=== PATIENT | female | born 1945 | race Caucasian/White ===

== ENCOUNTER 2024-04-21 15:55 | Outpatient (REF) | payer OTHER, MEDICAID, SELFPAY ==
[2024-04-21 17:50] LABS: BUN 30 mg/dL (7-18); CREATININE 1.1 mg/dL (0.55-1.02); Calcium 8.8 mg/dL (8.5-10.1); Chloride 105 mmol/L (98-107); Estimated GFR 51.75 (mL/min/1.73m2); Glucose 123 mg/dL (74-106); Sodium 144 mmol/L (136-145)
== END 2024-04-21 15:56 | disposition home or self-care (01) ==
LOC: LBN 15:55
PROVIDERS: PCP Family Medicine; Visit Provider Family Medicine
DX: I63.9 Cerebral infarction, unspecified (principal)
CPT/HCPCS: 80048

== ENCOUNTER 2024-05-19 10:14 | Emergency (ER) | payer MEDICARE, MEDICAID, SELFPAY ==
[2024-05-19] VITALS (34 sets, daily range): BP systolic 117–198; BP diastolic 58–84; PULSE 45–78; RESP 10–25; TEMP 36.4–36.9; O2SAT 94–100
[2024-05-19] MEDS: Propofol 200 MG/20 ML VIAL (10:21)
[2024-05-19] MEDS: Succinylcholine 100 MG/5 ML SYR (10:22)
--- NOTE | 2024-05-19 10:25 | W.ED.GENAD ---
Discharge Plan Disposition Patient Disposition: Transfer-Acute Inpatient Care Specific Acute Inpt Facility: [place] Condition: Critical Discharge Details Clinical Impression: Convulsions, status epilepticus, Non-ST elevation ND (NSTEMI), Respiratory failure requiring intubation, Atrial fibrillation Primary Care Provider: Shayla Yanez ED Provider: [facility] Meds and New Rx's Prescriptions: Continued acetaminophen 325 mg capsule 650 mg PO Q6H PRN atorvastatin 40 mg tablet 40 mg PO DAILY bisacodyl [Gentle Laxative (bisacodyl)] 10 mg suppository 10 mg ME DAILY PRN Eliquis 5 mg tablet 5 mg PO BID furosemide 40 mg tablet 40 mg PO DAILY lisinopril 20 mg tablet 20 mg PO DAILY melatonin 3 mg tablet 3 mg PO QHS psyllium husk [Daily Fiber] 0.4 gram capsule 0.4 g PO DAILY methimazole 15 mg tablet 15 mg PO DAILY metoprolol tartrate 25 mg tablet 12.5 mg PO BID magnesium hydroxide [Milk of Magnesia] 400 mg/5 mL suspension 30 ml PO QHS PRN Rx Instructions: Give if no BM in 3 days polyethylene glycol 3350 [ClearLax] 17 gram/dose powder 17 g PO DAILY Rx Instructions: Give in 4-8 ounces of fluid if no BM in 72 hours nitrofurantoin 100 mg capsule 100 mg PO DAILY Rx Instructions: must administer with a meal/food- for UTI prophylactic albuterol 90 mcg/actuation aerosol 180 mcg inhalation Q4H PRN Rx Instructions: 2 puffs Q4H PRN mupirocin 2 % ointment 1 applic topical BID Rx Instructions: Apply to belly button for skin irritation for 10 days- started 05/16/24 sertraline 100 mg tablet 200 mg PO DAILY Discharge Instructions Instructions: Atrial fibrillation Discharge Data Discharge Physician: Dick Fowler HPI General Date/Time Provider Initiated Documentation: 05/19/24 10:24. HPI Narrative: Patient presents emergency department brought in by the ambulance from custodial where she was last seen well at 9 AM and at approximately 10 AM was seen with left gaze deviation and left hemiparesis. Immediately EMS was called and the patient started having a seizure. She received 5 mg of IV Versed in the ambulance. Patient is unresponsive with apneic respirations nonverbal Related Data Home Medications ?Medication ?Instructions ?Recorded ?Confirmed acetaminophen 325 mg capsule 650 mg PO Q6H PRN 05/19/24 05/19/24 albuterol 90 mcg/actuation aerosol 180 mcg inhalation Q4H PRN 05/19/24 05/19/24 inhaler apixaban 5 mg tablet (Eliquis) 5 mg PO BID 05/19/24 05/19/24 atorvastatin 40 mg tablet 40 mg PO DAILY 05/19/24 05/19/24 bisacodyl 10 mg rectal suppository 10 mg ME DAILY PRN 05/19/24 05/19/24 (Gentle Laxative (bisacodyl)) furosemide 40 mg tablet 40 mg PO DAILY 05/19/24 05/19/24 lisinopril 20 mg tablet 20 mg PO DAILY 05/19/24 05/19/24 magnesium hydroxide 400 mg/5 mL 30 ml PO QHS PRN 05/19/24 05/19/24 oral suspension (Milk of Magnesia) melatonin 3 mg tablet 3 mg PO QHS 05/19/24 05/19/24 methimazole 15 mg tablet 15 mg PO DAILY 05/19/24 05/19/24 metoprolol tartrate 25 mg tablet 12.5 mg PO BID 05/19/24 05/19/24 mupirocin 2 % topical ointment 1 applic topical BID 05/19/24 05/19/24 nitrofurantoin 100 mg capsule 100 mg PO DAILY 05/19/24 05/19/24 polyethylene glycol 3350 17 17 g PO DAILY 05/19/24 05/19/24 gram/dose oral powder (ClearLax) psyllium husk 0.4 gram capsule 0.4 g PO DAILY 05/19/24 05/19/24 (Daily Fiber) sertraline 100 mg tablet 200 mg PO DAILY 05/19/24 05/19/24 Allergies Allergy/AdvReac Type Severity Reaction Status Date / Time adhesive tape Allergy Unknown Unknown Verified 05/19/24 10:29 metformin Allergy Unknown Unknown Verified 05/19/24 10:29 Sulfa (Sulfonamide Allergy Unknown Unknown Verified 05/19/24 10:29 Antibiotics) General Stated Complaint: Seizure ANGELO: 2 Review of Systems Narrative: Unable to obtain review of systems due to the patient's level of consciousness Exam Narrative Exam Narrative: Exam; vitals signs as reported above normal Constitutional;unresponsive non verbal General: no verbal no response HEENT: Head: normal to inspection, no palpable skull fracture and normocephalic atraumatic Eyes: : appearance normal, left gaze deviation Pupils: PERRL : conjunctiva normal Direct ophthalmoscopy: normal light reflex, normal conjunctiva, normal visual acuity Ears: Normal TM, normal external canal Nose: normal no rhinorreha Neck no JVD, supple non tender Neck: normal visual inspection, full ROM and no lymphadenopathy Chest: normal inspection of the chest Respiratory : Poor respiratory effort with normal bilateral breath sounds Cardio Rate: regular rate, rhythm: regular rhythm normal heart sounds S1 and S2 no murmurs, gallops, or rubs GI : normal to inspection, normal bowel sounds, soft, non tender, non distended, no organomegaly Back/Spine/ no CVA tenderness Thoracic/Lumbar Spine: no tenderness or deformities Skin no rashes or lesions Neuro: Patient is unresponsive with left gaze deviation Extremities, no edema, full range of motion, normal strength Course Reevaluation(s) Initial Evaluation: Patient patient intubated but now she is moving her lower extremities in response to painful stimuli. [id number] ultrasound does not show any abnormalities of her heart. Will titrate the propofol and teleneurology was consulted Time: 11:00 Consultations Consultation #1: Teleneurology Time: 15:23 Consultation #2: Spoke with Dr. Cordero attending physician in the ICU at [facility] with Kim who has accepted the patient transfer to the ICU Vital Signs Vital signs: Vital Signs Pulse 78 05/19/24 10:14 Pulse Oximetry 99 05/19/24 10:14 Pulse 78 05/19/24 10:14 Blood Pressure 179/79 H 05/19/24 10:20 Pulse Oximetry 99 05/19/24 10:14 Oxygen Delivery Method Ambu-Bag 05/19/24 10:14 Procedure Airway Management Date of Procedure: 05/19/24 Time of Procedure: 10:20 Patient Consented: Emergent Case Indication: Respiratory failure and Reduced level of consciousness Provider that performed the procedure: Dick Fowler Mallampati Class: 2 Sedation administered by provider performing procedure: Yes Sedation Given: Propofol. Preparation: property assessment monitor applied, pulse oximeter, capnometry used, supplemental O2 applied, reversal agents at bedside, suction/airway equipment at bedside and IV secured. ASA Class: II.. Induction setup: Apneic Oxygenation and Rapid Sequence Induction Ultrasound: Not used Airway Type: Intubation Grade: Paralytic(indicate dose given): Succinylcholine Post Induction Medication Management(indicate dose given): Propofol (mcg/kg/min) Gastric Tube: Not Placed Procedure Complications: None Procedure Outcome: Successful Medical Decision Making MDM: Summary: Patient presents to the emergency department brought in by ambulance after she had an episode of a seizure and continued status epilepticus which required Versed by the ambulance. Last known well was 9 AM and 10 AM according to the custodial staff they noted she was unresponsive with apparent weakness on the right side and was having a seizure. Seizure did not stop which required the ambulance to give her Versed and brought to the emergency department. Here in the emergency department she was not maintaining her airway and had to be emergently intubated. CT scan of the head and CT neck and head angiogram did not show any acute stroke or bleed. EKG shows atrial fibrillation at a rate in the 70s with no acute ST-T changes. Labs were done and the only remarkable thing is her troponin is mildly elevated. Chest x-ray did not show any infiltrate and showed an ET tube in place. After the patient was intubated and sedated the patient received Keppra 1600 mg IV. As the sedation decreases the patient is moving all extremities. Teleneurology was consulted which feel that she might have just had new onset seizures or she have a very small stroke and they request that she has neurochecks, MRI and has a taper down the ventilator to see if she is responding. Patient is not a candidate for thrombolysis for she is on Eliquis regardless. unfortunately in [facility] does not have neurology so I have spoken with the hospital Dr. Herbert Morrison who recommends the patient be transferred out. I have called [facility] who are at capacity and they will not be able to take the patient.. The patient is a full code and spoke with her daughter who understands the situation. [id number] ultrasound of her heart and lungs showed no abnormality there is no regional wall abnormalities. Data Review Analysis All the data on this patient was reviewed by me including laboratory and imaging studies as well as bedside studies performed by me Independent review of Studies Imaging CT scan of the head, CT scan angiogram, chest x-rays, and POCUS as described above Lab: Labs are described above Risk Stratification: Patient who had a seizure and status epilepticus who had a stroke in the past and comes with seizures intubated will be transferred to a higher level of care Differential Diagnosis: 1. Status epilepticus 2. New onset stroke 3. Non-STEMI 4. Metabolic encephalopathy 5. Consultants: Have consulted with Dr. Herbert Morrison, teleneurology, and [facility] [place] as well as [facility] Shared disposition: The daughter understands disposition and agrees Impression: Medical Records Medical records reviewed: Yes I reviewed the patient's medical records. Lab Data Lab results reviewed: Yes I reviewed the patient's lab results. ECG Data Attestation: I personally reviewed and interpreted this ECG (s) as follows: Prior ECG tracings: not available for review Interpretation: Hr 68 Atrial fibrillation...? atrial activity RBBB and LAFB...QRSd >120mS, axis(-40,240) Core Measures AMI Core Measures Followed: No Quality:SDOH Health Related Social Needs: No Data to Display Critical Care Time Critical Care Time Critical Care Time: Yes Total Critical Care Time: 70 Attestation: Critical care time for pending deterioration of the cardiovascular and neurological systems [facility] All Active Problems (Updated 05/19/24 @ 14:40 by Dick Fowler MD) Atrial fibrillation (Chronic) Respiratory failure requiring intubation (Acute) Non-ST elevation ND (NSTEMI) (Acute) Convulsions, status epilepticus (Acute) Social History Smoking/Tobacco Use Status: Unknown Smoking risk assessment performed?: Yes Substance use type: unknown Housing: assisted living facility POCUS Exam (ED) Limited Cardiac Exam DATE OF EXAM: 05/19/24 TIME OF EXAM: 10:55 PROVIDER THAT PERFORMED THE STUDY: Dick Fowler REASON FOR EXAM: Evaluation of LV function and ND VISUALIZED STRUCTURES: Four Chambers, Left atrium, Left ventricle, LVOT, Right atrium, Right ventricle, Aortic valve, Mitral valve and IVC VIEW OBTAINED: Apical 4-Chamber, Parasternal long-axis, Parasternal short-axis and Subxiphoid PERTINENT FINDINGS/IMPRESSION: No apparent abnormalities Exam complete Limited Thoracic Lung Exam DATE OF EXAM: 05/19/24 TIME OF EXAM: 11:00 PROVIDER THAT PERFORMED THE STUDY: Dick Fowler REASON FOR EXAM: Acute Respiratory Distress Syndrome VISUALIZED STRUCTURES: right anterior, left anterior, right lateral and left lateral PERTINENT FINDINGS/
--- NOTE | 2024-05-19 10:28 | DI.CT_ITS ---
Exam(s) CT BRAIN NECK CTA EXAM: CT BRAIN NECK CTA CLINICAL HISTORY: left hemiparesis. TECHNIQUE: Imaging Protocol: Axial CT angiography was performed with multi-slice acquisition and mu lti-planar and MIP reconstructions. CONTRAST MATERIAL: Intravenous: Omnipaque 350 Contrast volume:100 ml COMPARISON: No exams were available for comparison FINDINGS: CT Head W/O and W contrast: Ventricles and Extra axial spaces: Normal in size and morphology for the patient's age. Hemorrhage: None. Cerebral parenchyma: No evidence of acute infarct or mass. Large old infarct seen in the left fronta l, parietal and occipital lobes as well as posterior left temporal lobe. Midline shift: None. Brainstem/Cerebellum: No acute findings.. Calvarium: Normal. Visualized Paranasal sinuses/Mastoids: Clear. Soft Tissues: Unremarkable. Enhancement: Normal. CTA Brain W: Internal Carotid Arteries: Petrous: Normal. Cavernous: Mild calcification but no significant stenosis bilaterally. Cerebral: Normal. Middle Cerebral Arteries: Right: No aneurysm, occlusion or significant stenosis. Left: No aneurysm, occlusion or significant stenosis. Anterior Cerebral Arteries: Right: No aneurysm, occlusion or significant stenosis. Left: No aneurysm, occlusion or significant stenosis. Posterior cerebral Arteries: Right: No aneurysm, occlusion or significant stenosis. Left: No aneurysm, occlusion or significant stenosis. Vertebral Arteries: Right: No aneurysm, occlusion or significant stenosis. Left: No aneurysm, occlusion or significant stenosis. Basilar Artery: No aneurysm, occlusion or significant stenosis. CTA Neck W: Common Carotid: Minimal calcific plaque at the common carotid bulbs. Right: No dissection, occlusion or significant stenosis. Left: No dissection, occlusion or significant stenosis. External Carotid: Right: No dissection, occlusion or significant stenosis. Left: No dissection, occlusion or significant stenosis. Internal Carotid: Right: No dissection, occlusion or significant stenosis. Left: No dissection, occlusion or significant stenosis. Vertebral Artery: Right: Diminutive. Terminates in PICA. No dissection, occlusion or significant stenosis. Left: Focal calcific plaque at the C4 level. No dissection, occlusion or significant stenosis. Lung Apices: No acute findings. Emphysematous changes. Bones: No acute abnormality. On degenerative changes in the spine. Soft Tissues: Endotracheal tube appropriately positioned within the trachea. Multinodular goiter. IMPRESSION: 1. CTA brain: Normal CTA examination of the [place]. 2. 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 No acute infarct visible. 3. CTA neck: Normal CTA examination of the neck. No significant stenosis in the carotid or vertebral arteries. RADIATION DOSE DELIVERED: 2,180.14mGy.cm Total DLP DATA REPOSITORY: All CT scans at this facility are submitted to the National Radiology Data Registry (NRDR) Dose Index Registry (DIR) with the [employer] (ACR). RADIATION OPTIMIZATION: All CT scans at this facility use at least one of these dose optimization te chniques: automated exposure control; mA and/or kV adjustment per patient size (includes targeted exa ms where dose is matched to clinical indication); or iterative reconstruction.
--- NOTE | 2024-05-19 10:30 | DI.RAD_ITS ---
Exam(s) XR PORTABLE CHEST AP EXAM: XR PORTABLE CHEST AP CLINICAL HISTORY: post intubation TECHNIQUE: 2D digital imaging was performed. COMPARISON: No exams were available for comparison FINDINGS: Endotracheal tube is been inserted. The tip lies the level of the aortic arch. Overlying monitoring leads. LUNGS: Multiple calcified granulomas. No focal infiltrate. No pleural abnormality seen. HEART: Normal size. AORTA: Mildly tortuous. BONES: Unremarkable for age. Soft tissues: Unremarkable. IMPRESSION: Satisfactory placement of endotracheal tube. DATA REPOSITORY: RADIATION DOSE DELIVERED:
--- NOTE | 2024-05-19 10:30 | RT.EKG_ITS ---
APPROVED REPORT Exam: Resting ECG Reason for Exam: afib Patient Location: E HR:68 bpm ECG Measurements Heart Rate 68 AXIS KS [id number] P [id number] QRSd 161 QRS -64 QT 478 T [id number] QTc 509 Conclusion Atrial fibrillation...? atrial activity RBBB and LAFB...QRSd >120mS, axis(-40,240)
[2024-05-19 10:37] LABS: Abs Immature Grans 0.06 10^3/uL (0.0-0.06); Absolute Basophil Count 0.07 10^3/uL (0.0-0.2); Absolute Eosinophil Count 0.08 10^3/uL (0.0-0.7); Absolute Lymphocyte Count 2.85 10^3/uL (1.2-3.4); Absolute Monocyte Count 0.92 10^3/uL (0.1-0.8); Absolute Neutrophil Count 4.11 10^3/uL (1.2-6.7); Basophils % 0.9 %; HCT 41.6 % (36.0-46.0); HGB 13.4 g/dL (11.2-15.7); Immature Grans % 0.7 %; Lymphocytes % 35.2 %; MCH 31.1 pg (27.0-33.0); MCHC 32.2 % (32.0-36.0); MCV 97 fL (80-95); MPV 12.5 fL (8.0-11.0); Monocytes % 11.4 %; Neutrophils % 50.8 %; Platelet Count 197 10^3/uL (130-400); RBC 4.31 10^6/uL (3.93-5.22); RDW 15.9 % (11.7-14.6); RDW-SD 57.2 fL; WBC 8.09 10^3/uL (4.4-10.8)
[2024-05-19 10:59] LABS: ALT 36 U/L (14-59); AST 44 U/L (15-37); Albumin 3.1 g/dL (3.4-5.0); Alkaline Phosphatase 117 U/L (46-116); Anion Gap 11.5 mmol/L (3-11); BUN 25 mg/dL (7-18); Bilirubin, Total 0.99 mg/dL (0.2-1.0); CO2 26.5 mmol/L (21.0-32.0); CREATININE 1.2 mg/dL (0.55-1.02); Calcium 8.6 mg/dL (8.5-10.1); Chloride 104 mmol/L (98-107); Estimated GFR 46.62 (mL/min/1.73m2); Glucose 185 mg/dL (74-106); Magnesium 1.7 mg/dL (1.8-2.4); Potassium 3.8 mmol/L (3.5-5.1); Sodium 142 mmol/L (136-145); Total Protein 7.5 g/dL (6.4-8.2)
[2024-05-19 11:00] LABS: Troponin I 194 ng/L (<or=51)
[2024-05-19] MEDS: Normal Saline - Diluent 50 ML VIAL IJ (11:01)
[2024-05-19] MEDS: Omnipaque 350 MG/ML 100 ML BTL IJ (11:02)
[2024-05-19] MEDS: PROPOFOL 1,000 MG/100 ML BTL 2.422 MG IVPB (11:03)
[2024-05-19 11:49] LABS: Troponin I 173 ng/L (<or=51)
[2024-05-19] MEDS: levETIRAcetam 1,000 MG in Normal Saline 100 ML 400 MG IVPB (12:40)
--- NOTE | 2024-05-19 13:15 | DI.RAD_ITS ---
Exam(s) XR PORTABLE CHEST AP EXAM: XR PORTABLE CHEST AP CLINICAL HISTORY: confirm OG tube placement TECHNIQUE: 2D digital imaging was performed. COMPARISON: CR XR PORTABLE CHEST AP from 05/19/2024 FINDINGS: The endotracheal tube is unchanged in position. An orogastric tube has been placed which projects i n the stomach. LUNGS: Clear. No pleural abnormality seen. HEART: Normal size. AORTA: Mildly and ectatic. Calcified. BONES: Unremarkable for age. Soft tissues: Unremarkable. IMPRESSION: Satisfactory placement of gastric tube. DATA REPOSITORY: RADIATION DOSE DELIVERED:
[2024-05-19 14:23] LABS: Troponin I 212 ng/L (<or=51)
[2024-05-19 14:56] LABS: Bilirubin Negative (Negative); Blood Trace-intact (Negative); Clarity Clear (Clear); Glucose Negative (Negative); Ketones Negative (Negative); Leukocyte Esterase Negative (Negative); Nitrite Positive (Negative); Urobilinogen 0.2 mg/dL (Up to 0.2); pH 5.5 (5-8)
[2024-05-19 15:04] LABS: Bacteria Moderate HPF (Negative); Crystals Negative HPF (Negative); Epithelial Cells Rare HPF (Negative); Mucus Negative (Negative); RBC 0-2 HPF (0-2); WBC 0-2 HPF (0-5)
[2024-05-19 15:05] LABS: C & S Indicated? No; Casts 0-2 Hyaline LPF (Negative)
[2024-05-19 15:22] LABS: *AMPHETAMINES SCREEN URINE Negative (Negative); *BARBITURATES SCREEN URINE Negative (Negative); *BENZODIAZEPINES SCREEN URINE Positive (Negative); Cannabinoids THC Negative (Negative); Cocaine Screen,Urine Negative (Negative); METHADONE URINE SCREEN Negative (Negative); OPIATES URINE SCREEN Negative (Negative)
[2024-05-19 15:27] LABS: Tricyclic Antidepressants Negative (Negative)
[2024-05-19] MEDS: PROPOFOL 1,000 MG/100 ML BTL 12.111 MG IVPB (17:23)
== END 2024-05-19 17:49 | disposition short-term general hospital (02) ==
PROVIDERS: Emergency Provider Emergency Medicine Emergency Medical Services; PCP Family Medicine
DX: G40.801 Other epilepsy, not intractable, with status epilepticus (principal); I21.4 Non-ST elevation (NSTEMI) myocardial infarction; J96.90 Respiratory failure, unspecified, unspecified whether with hypoxia or hypercapnia; I48.91 Unspecified atrial fibrillation; Z79.01 Long term (current) use of anticoagulants
CPT/HCPCS: 31500; 36415; 70496; 70498; 76604; 80053; 80307; 82962; 93005; 93308; 96365; 99291; 71045; 81003; 81015; 83735; 84484; 85025; 93010; J0330; J1953; J2704; J3490